=== PATIENT | female | born 1935 | race Caucasian/White ===

== ENCOUNTER 2019-03-14 13:08 | Inpatient (IN) | payer OTHER ==
[2019-03-14] VITALS (16 sets, daily range): BP systolic 113–199; BP diastolic 50–111
[~2019-03-14] VITALS: Ht 157.5 cm; Wt 93.4 kg
[2019-03-14 13:36] LABS: ABSOLUTE NEUTROPHILS 5.1 thou/uL (1.4-8.2); BASOPHILS 0.4 % (0.0-2.0); EOSINOPHILS 3.1 % (0.0-3.0); HEMATOCRIT 40.7 % (37.0-47.0); HEMOGLOBIN 13.8 gm/dL (12.0-15.0); MCH 31.3 pg (26.0-34.0); MCHC 33.8 g/dL (28.0-37.0); MCV 92.6 fL (80.0-100.0); MONOCYTES 6.9 % (1.0-8.0); PLATELET COUNT 250 thou/uL (150-400); POLYS 50.6 % (36.0-66.0); RDW 14.8 % (10.5-14.5); WBC 10.2 thou/uL (4.0-11.0)
--- NOTE | 2019-03-14 13:36 | NUR ---
NO ALL TERRAIN VEHICLE TECHNICIAN PER CARDIO AT BEDSIDE; PT AWARE
[2019-03-14 13:47] LABS: ANION GAP 7 mmol/L (7-16); BUN 28 mg/dL (7-18); CALCIUM 10.3 mg/dL (8.5-10.1); CHLORIDE 104 mmol/L (98-107); CO2 34 mmol/L (21-32); CREATININE 1.4 mg/dL (0.6-1.0); GLUCOSE 155 mg/dL (74-106); POTASSIUM 4.5 mmol/L (3.5-5.1); SODIUM 145 mmol/L (136-145)
[2019-03-14 13:56] LABS: TROPONIN-I <0.06 ng/mL (<0.06)
[2019-03-14 14:06] LABS: PROTIME 10.6 Seconds (9.3-11.4)
[2019-03-14] MEDS ORDERED: SYNTHROID150 MCG PO (14:57)
[2019-03-14] MEDS ORDERED: CALCIUM 500 +1 EAC5 PO (14:58)
[2019-03-14] MEDS ORDERED: LOSARTAN POTASS50 MG PO (14:58)
[2019-03-14] MEDS ORDERED: OMEPRAZOLE 20 M20 M1 PO (14:59)
[2019-03-14] MEDS ORDERED: CYMBALTA60 MG PO (14:59)
[2019-03-14] MEDS ORDERED: GLUCOSAMINE HC500 MG PO (15:00)
[2019-03-14] MEDS ORDERED: TRANDATE 200 M200 M1 PO (15:01)
[2019-03-14] MEDS ORDERED: METFORMIN HCL500 MG PO (15:02)
[2019-03-14] MEDS ORDERED: BUMETANIDE 1 MG1 M1 PO (15:03)
[2019-03-14] MEDS ORDERED: ACTOS 45 MG45 M1 PO (15:04)
[2019-03-14] MEDS ORDERED: SYNTHROID175 MCG PO (15:05)
[2019-03-14] MEDS ORDERED: PRAVACHOL40 MG PO (15:05)
[2019-03-14] MEDS ORDERED: UNICOMPLEX M TA1 TA1 PO (15:06)
[2019-03-14] MEDS ORDERED: ASPIR 8181 MG PO (15:06)
[2019-03-14] MEDS ORDERED: FISH OIL 1,001000 M2 PO (15:07)
[2019-03-14] MEDS ORDERED: NEURONTIN 300300 M1 PO (15:07)
[2019-03-14] MEDS ORDERED: NORCO 10-325 T1 EACH PO (15:11)
[2019-03-14] MEDS ORDERED: KEFLEX500 M1 PO (15:12)
[2019-03-14] MEDS ORDERED: CENTANY30 GM TOP (15:14)
[2019-03-14] MEDS ORDERED: BETAMETHASONE D60 M2 TOP (15:15)
--- NOTE | 2019-03-14 15:15 | NUR ---
PT IS ALERT AND ORIENTED X4. CAME FROM [facility] WITH CHEST PAIN. CTA NEGATIVE AND TROPONIN NEGATIVE. LUNGS ARE CLEAR . ON 3 LITERS NASAL CANULA. DENIES CHEST PAIN. PT HAS A WOUND ON RIGHT LOWER LEG. PUT A CONSULT FOR WOUND CARE TEAM TO SEE AND EVALUATE. SPOUSE AT BEDSIDE FOR SUPPORT. BLOOD SUGAR WNL. VITALS STABLE. VOIDS PER BEDPAN. PT STATES SHE HAS BEEN DIZZY AND WEAK AT HOME [facility]. WILL CONTINUE TO MONITOR AND ASSESS PER NURSING
[2019-03-14] MEDS ORDERED: GINKGO BILOBA120 M1 PO (15:17)
[2019-03-14] MEDS ORDERED: BEE POLLEN550 MG PO (15:17)
--- NOTE | 2019-03-14 16:27 | EKG ---
[address] [address] ELECTROCARDIOGRAM REPORT Name: PRINCESS CAMPA Room #: 241-P ADM IN M.R.#: [id number] ������������������ Admission: 03/14/19 ������������������ Attend Phys: Bryan Ibrahim MD Discharge: ������������������ Date of : 39 Report #: [id number] ����������������������������������������������������������������� [id number] THIS REPORT FOR: //name// [facility] ED Test Date: 2019-03-14 Test Time: 13:13:54 Pat Name: PRINCESS CAMPA Department: Room: 241 Gender: F Registered Pharmacist: KF : 1935 Requested By: Brandon Montiel Order Number: [id number] MD: Edgar Shaw Measurements Intervals [place]der Rate: 70 P: 33 WA: 152 QRS: 5 QRSD: 86 T: 132 QT: 426 QTc: 460 Interpretive Statements Pacemaker spikes or artifacts Sinus rhythm Probable LVH with secondary repol abnrm ST elevation, inferior lead unchanged from prior Compared to ECG 07/09/2009 10:59:57 Electronically Signed On 03-14-2019 16:27:31 CDT by Edgar Shaw [email or web address] ��������������������������������������������� <ELECTRONICALLY SIGNED> ���������������������������������������� By: Edgar Shaw MD ��������������������������������������������� 03/14/19 1627 1313 1313 Edgar Shaw MD /EPI
[2019-03-15] VITALS (23 sets, daily range): BP systolic 114–215; BP diastolic 45–87
[2019-03-15 04:56] LABS: HEMATOCRIT 39.2 % (37.0-47.0); MCH 30.8 pg (26.0-34.0); MCHC 33.2 g/dL (28.0-37.0); MCV 92.9 fL (80.0-100.0); RBC 4.22 mil/uL (4.20-5.00); RDW 15.2 % (10.5-14.5); WBC 7.8 thou/uL (4.0-11.0)
[2019-03-15 05:12] LABS: ANION GAP 7 mmol/L (7-16); BUN 26 mg/dL (7-18); CALCIUM 9.3 mg/dL (8.5-10.1); CHLORIDE 104 mmol/L (98-107); CO2 31 mmol/L (21-32); CREATININE 1.1 mg/dL (0.6-1.0); GLUCOSE 163 mg/dL (74-106); MAGNESIUM 1.9 mg/dL (1.8-2.4); POTASSIUM 3.9 mmol/L (3.5-5.1); SODIUM 142 mmol/L (136-145); TROPONIN-I <0.06 ng/mL (<0.06)
--- NOTE | 2019-03-15 07:15 | NUR ---
ASSUME CARE 1900. PT/VITALS STABLE. BP RUNS HIGH. HYDRALAZINE 10MG FOR SBP > 160. UP WITGH ASSISTANCE TO BATHYROOM INTERMITTENT CP. A/O X 4. ASSESSMENT CHARTED. PROGRESSING WELL WITH POC. PLAN IS FOR PT TO STAY NPO FROR STRESS TEST TODAY. PASSED ON TO DAY NURSE TO KYUNG PICTURES OF WOUND ON RIGHT LEG. WILL CONTINUE TO MONITOR AND FOLLOW WITH POC.
--- NOTE | 2019-03-15 07:39 | 2DMMODE ---
[facility] [place] [address] 2 D/M-MODE ECHOCARDIOGRAM Name: MORRISJOSSELINELVIRAPRINCESS Room #: 241-P ADM IN M.R.#: [id number] ������������� Admission: 03/14/19 ������������� Attend Phys: Bryan Ibrahim MD Discharge: ��� ������������� ��� Date of : 39 Date of Service: 03/15/19 0738 �� Report #: [id number] �������� ��������������������������������������������[id number] THIS REPORT FOR: //name// APPROVED REPORT Study performed: 03/15/2019 06:48:11 EXAM: Comprehensive 2D, Doppler, and color-flow Echocardiogram Patient Location: ICU Room #: 241 Status: routine BSA: 1.95 HR: 72 bpm BP: 185/64 mmHg Rhythm: NSR Other Information Study Quality: Adequate Indications Dyspnea Chest Pain 2D Dimensions RVDd: 34.33 mm IVSd: 14.00 (7-11mm) LVOT Diam: 20.41 (18-24mm) LVDd: 47.00 mm PWd: 12.00 (7-11mm) Ascending Ao: 29.55 (22-36mm) LVDs: 27.08 (25-40mm) Aortic Root: 29.84 mm Volumes Left Atrial Volume (Systole) Single Plane 4CH: 70.43 mL Single Plane 2CH: 65.87 mL LA ESV Index: 38.00 mL/m2 Aortic Valve AoV Peak Gautam.: 1.77 m/s AO Peak Gr.: 12.53 mmHg LVOT Max P.88 mmHg LVOT Max V: 1.21 m/s CLARY Vmax: 2.24 cm2 Mitral Valve E/A Ratio: 0.9 MV Decel. Time: 266.85 ms [facility] [email or web address] [address] 2 D/M-MODE ECHOCARDIOGRAM Name: PRINCESS CAMPA Room #: Formerly named [facility]#: [id number] ������������� Admission: 03/14/19 ������������� Attend Phys: Bryan Ibrahim MD Discharge: ��� ������������� ��� Date of : 39 Date of Service: 03/15/19 0738 �� Report #: [id number] �������� ��������������������������������������������[id number] MV E Max Gautam.: 1.30 m/s MV A Gautam.: 1.45 m/s MV PHT: 77.39 ms IVRT: 101.50 ms Pulmonary Valve PV Peak Gautam.: 1.39 m/s PV Peak Gr.: 7.73 mmHg Pulmonary Vein P Vein S: 0.81 m/s P Vein D: 0.33 m/s P Vein S/D Ratio: 2.45 Tricuspid Valve TR Peak Gautam.: 3.04 m/s RAP Estimate: 5.00 mmHg TR Peak Gr.: 36.99 mmHg PA Pressure: 42.00 mmHg Left Ventricle The left ventricle is normal size. There is normal LV segmental wall motion. Mild to moderate concentric left ventricular hypertrophy. Left ventricular systolic function is normal. LVEF is 60-65%. Mild diastolic dysfunction is present (impaired relaxation pattern). Right Ventricle The right ventricle is normal size. The right ventricular systolic function is normal. Atria The left atrium size is normal. The right atrium size is normal. Aortic Valve Aortic valve is trileaflet. No aortic regurgitation is present. There is no aortic valvular stenosis. Mitral Valve Mild mitral annular calcification. Trace to mild mitral regurgitation. Tricuspid Valve The tricuspid valve is normal in structure. Mild tricuspid regurgitation. Estimated PAP is 40-45mmHg. Pulmonic Valve [facility] [place] [address] [place] [address] 2 D/M-MODE ECHOCARDIOGRAM Name: PRINCESS CAMPA Room #: 241-P ADM IN M.R.#: [id number] ������������� Admission: 03/14/19 ������������� Attend Phys: Bryan Ibrahim MD Discharge: ��� ������������� ��� Date of : 39 Date of Service: 03/15/19 0738 �� Report #: [id number] �������� ��������������������������������������������[id number] The pulmonary valve is normal in structure. Trace pulmonic regurgitation. Great Vessels The aortic root is normal in size. The ascending aorta is normal in size. IVC is normal in size and collapses >50% with inspiration. Pericardium There is no pericardial effusion. <Conclusion> Left ventricular systolic function is normal. Mild to moderate concentric left ventricular hypertrophy. There is normal LV segmental wall motion. LVEF 60-65%. Mild diastolic dysfunction is present (impaired relaxation pattern). Aortic valve is trileaflet. No aortic regurgitation or stenosis. Mild mitral annular calcification. Trace to mild mitral regurgitation. Mild tricuspid regurgitation. Estimated pulmonary artery pressure of 40-45mmHg. There is no pericardial effusion. ��������������������������������������������� <ELECTRONICALLY SIGNED> ���������������������������������������� By: Negro Johns MD, [facility] ��������������������������������������������� 03/15/19737 7 7 Negro Johns MD, FACC /INF
--- NOTE | 2019-03-15 09:02 | EKG ---
[address] [address] ELECTROCARDIOGRAM REPORT Name: PRINCESS CAMPA Room #: 241-P ADM IN M.R.#: [id number] ������������������ Admission: 03/14/19 ������������������ Attend Phys: Bryan Ibrahim MD Discharge: ������������������ Date of : 37 Report #: [id number] ����������������������������������������������������������������� [id number] THIS REPORT FOR: //name// [facility] Test Date: 2019-03-15 Test Time: 07:32:02 Pat Name: PRINCESS CAMPA Department: Room: 241 P Gender: F Equipment Services Associate: : 1935 Requested By: Bryan Ibrahim Order Number: [id number] MD: Edgar Shaw Measurements Intervals [place] Rate: 68 P: 51 CT: 156 QRS: 29 QRSD: 85 T: 119 QT: 431 QTc: 459 Interpretive Statements Sinus rhythm Consider left atrial enlargement Borderline ST elevation, unchanged. Compared to ECG 03/14/2019 13:13:54 Electronically Signed On 03-15-2019 9:02:34 CDT by Edgar Shaw [email or web address] ��������������������������������������������� <ELECTRONICALLY SIGNED> ���������������������������������������� By: Edgar Shaw MD ��������������������������������������������� 03/15/19901 1 1 Edgar Shaw MD /JAMES
--- NOTE | 2019-03-15 09:23 | NUR ---
Nutrition: RD received consult due to diabetes in ICU. Dx, DM, HTN, CP. Pt having stress test today. Usual intake is good. Stable weights. Right lower leg wound from CA removal several weeks ago. BG 132-209. Home diet is mainly portion control. Was not familiar with carbohydrates. Provided brief introduction to carb counting and plate method handout provided. Will followup when out of ICU for further instruction as appropriate. Otherwise low risk.
--- NOTE | 2019-03-15 11:41 | NUR ---
Pt is currently in ICU with cardiac workup in progress. The pt reports that she has had dizziness and chest pain. She lives with her spouse on a farm near [place], [place]. She has a cane and a rwalker but only used them last year when she had a hip replacement surgery. She is familiar with HH and outpt therapy as well from last year. She believes [facility] was her provider. She is normally indep with gait and adl's. Spouse does the driving for both of them. They have [place]. She denies any dc needs or concerns. CM role introduced at bedside. Will remain available should dc needs arise.
--- NOTE | 2019-03-15 14:30 | NUR ---
wound team here. culture sent.
--- NOTE | 2019-03-15 15:14 | NUR ---
WOUND CONSULT: PT. WAS SEEN TODAY BY DR. DICKERSON AND MYSELF. PT. HAS A WOUND TO HER RIGHT ROUSE WHERE SOME SKIN CANCER WAS REMOVED. JUDY-WOUND WAS SLIGHTLY RED TODAY. RECOMMENDATIONS: WOUND CARE TO RIGHT ROUSE: GENTLY CLEANSE AREA WITH WOUND CLEANSER OR NORMAL SALINE, APPLY THERAHONEY TO WOUND BED, COVER WITH BORDERED FOAM, COMPLETE CARES M/W/F AND PRN. PT. AND STAFF NURSE WERE INSTRUCTED ON PLAN OF CARE.
--- NOTE | 2019-03-15 15:30 | NUR ---
to nuclear med. Dr. Yates states pt can go off monitor and transfer to CCU afterwards.
--- NOTE | 2019-03-15 19:37 | NUR ---
end of shift note. pt to stress test part one today. may eat or drink with no restrictions now. CCU overflow. HTN this am, normal now. Care to wound down per wound team. State do no remove dressing until they do on Wednesday.
--- NOTE | 2019-03-16 03:27 | NUR ---
PT ARRIVED UNIT FROM ICU AT ABOUT 2320. PT A/OX4, VITAL SIGNS STABLE, ASSESSMENT CHARTED. NO COMPLAINTS OF PAIN/CHEST PAIN. 2L O2, SATURATION WITHION NORMAL LIMITS. FALL PRECAUTIONS IN PLACE. PT ENCOURGAED TO CALL BEFORE GETTING OUT OF BED. PT RESTED WELL FOR THE REST OF THE NIGHT. PROGRESSIING TOWARD PLAN OF CARE. WILL CONTINUE TO MONITOR.
[2019-03-16 04:13] VITALS: BP 140/64
[2019-03-16 07:40] VITALS: BP 128/46
[2019-03-16 11:14] VITALS: BP 132/48
[2019-03-16] MEDS ORDERED: AMLODIPINE BESYL5 M1 PO (12:19)
[2019-03-16 15:12] VITALS: BP 132/48
--- NOTE | 2019-03-16 18:40 | NUR ---
ASSUMED CARE OF PATIENT AT 0700. ASSESSMENTS CHARTED. PATIENT'S IS SITTING AT THE BEDSIDE. PATIENT UNDERWENT PART 2 OF NUCLEAR STRESS TEST TODAY. PATIENT AMBULATED THE HALLS WITHOUT O2 AND O2 SAT NO LESS THAN 94%. PATIENT DOES NOT USE O2 AT HOME. PATIENT DENIES ANY CHEST PAIN OR PRESSURE. PATIENT APPROVED FOR D/C BY CARDIOLOGY AND HOSPITALIST. SCRIPTS GIVEN TO THE PATIENT WITH INFORMATION SHEET. D/C PAPERWORK SIGNED. PATIENT TAKEN VIA WHEELCHAIR TO THE ER ENTRANCE AND DRIVEN HOME BY HER . W/C INSTRUCTIONS CALLED TO THE PATIENT AT 1840 TO F/U WITH DR. GRIJALVA OR JAYLA AT [address] [facility], [facility], [facility]. PHONE NUMBER TO CALL [phone]. PATIENT STATES THAT SHE WILL CALL TOMORROW TO MAKE FOLLOW UP APPT.
--- NOTE | 2019-03-17 07:55 | HC ---
[facility] [place] [address] CONSULTATION Name: PRINCESS CAMPA Room #: 214-P [facility] IN M.R.#: [id number] Admission: 03/14/19 ������������������ Attend Phys: Bryan Ibrahim MD Discharge: 03/16/19 ������������������ Date of : 39 Report #: [id number] THIS REPORT FOR: //name// CC: AMISH Ibrahim Physician staff DATE OF SERVICE: 03/15/2019 CHIEF COMPLAINT: Ulceration to right leg. HISTORY OF PRESENT ILLNESS: This is an 83-year-old female patient who is transferred from [facility] for possible myocardial infarction. The patient was noted to have a longstanding surgical wound on her right leg. She had a skin cancer "removed" about a year ago and the area has been nonhealing since that time. The patient had been followed by manager relocation with local care but states there has been no improvement. 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 SOCIAL HISTORY: Negative for alcohol use. Positive for current smoker. ALLERGIES: To SULFA. MEDICATIONS: Include Losartan, omeprazole, Cymbalta, labetalol, Glucophage, bumetanide, Actos, Pravachol, Synthroid, aspirin, Unicomplex, Neurontin, Keflex, Bee Pollen and ginkgo. REVIEW OF SYSTEMS: CONSTITUTIONAL: The patient denies fever, chills or weight loss. NEUROLOGICAL: The patient denies focal weakness, numbness or tingling. EYES: The patient denies visual changes, redness or drainage. ENT: The patient denies earache, nasal drainage or sore throat. CARDIOVASCULAR: The patient denies chest pain, palpitations or diaphoresis. PULMONARY: The patient denies cough or shortness of breath. GASTROINTESTINAL: The patient denies nausea, vomiting, diarrhea or abdominal pain. ORTHOPEDIC: The patient does complain of the surgical wound on her right lower leg. Other systems in the 14-point review of systems are negative. PHYSICAL EXAMINATION: VITAL SIGNS: At this time include temperature 98.3, pulse 69, respiration 15 [facility] [address] [place] [address] CONSULTATION Name: PRINCESS CAMPA Room #: 214-[facility].#: [id number] Admission: 03/14/19 ������������������ Attend Phys: Bryan Ibrahim MD Discharge: 03/16/19 ������������������ Date of : 39 Report #: [id number] and blood pressure 158/59. GENERAL: This is a chronically ill-appearing female patient who appears to be in minimal distress. HEENT: Head normocephalic. Nose and throat are clear. NECK: Supple. LUNGS: Clear. HEART: Regular rhythm. ABDOMEN: Soft. Bowel sounds present. EXTREMITIES: Examination of the lower extremities demonstrates 2+ lower extremity edema. Pulses are palpable but diminished. SKIN: Jaconita, warm and dry. There is a circular wound to the pretibial region on the right lower leg. The area is covered with a thick crust. There is surrounding erythema and tenderness and warmth. We have peeled away some of the crusting revealing some granulation tissue on the base. CLINICAL IMPRESSION: 1. Nonhealing surgical wound to the right leg, status post excision of a squamous cell skin cancer about approximately one year ago. 2. Hyperglycemia, likely underlying diabetes mellitus. 3. Clinical evidence of mild peripheral vascular disease. 4. Lower extremity edema. 5. Cellulitis, right lower extremity. RECOMMENDATIONS: At this point in time, culture and sensitivity has been taken from the right leg. We will send this and consider antibiotic therapy, pending those results. We will dress the wound with topical Medihoney and a bordered foam. She would benefit from mild compression with Tubigrip stockings bilaterally. We will check arterial Dopplers. If she has good blood flow, I think we will be able to manage her with a little bit more aggressive compression to aid in healing. I appreciate being asked to see the patient in consultation. ��������������������������������������������� <ELECTRONICALLY SIGNED> ���������������������������������������� By: Ten Tolbert MD ��������������������������������������������� 03/17/19 0755 1600 0932 Ten Tolbert MD /nt
== END 2019-03-16 16:00 | disposition home or self-care (01) | DRG 206 ==
LOC: ER 13:08 → ICU 13:26 → EROBS 13:26 → 2N 13:26 → ICU 15:00 → 2N 03-15 23:26 → ENTRNSPT 03-16 15:41 → EDTRNSPTSTS 03-16 15:42 → 2N 03-16 16:00
PROVIDERS: Emergency Medicine; Internal Medicine; ADMIT Internal Medicine
DX: M94.0 Chondrocostal junction syndrome [Tietze] (principal); L03.115 Cellulitis of right lower limb; L97.919 Non-pressure chronic ulcer of unspecified part of right lower leg with unspecified severity; G89.29 Other chronic pain; M54.9 Dorsalgia, unspecified; N18.9 Chronic kidney disease, unspecified; G56.00 Carpal tunnel syndrome, unspecified upper limb; F17.210 Nicotine dependence, cigarettes, uncomplicated; K21.9 Gastro-esophageal reflux disease without esophagitis; E66.01 Morbid (severe) obesity due to excess calories; E03.9 Hypothyroidism, unspecified; E78.5 Hyperlipidemia, unspecified; E11.65 Type 2 diabetes mellitus with hyperglycemia; E11.22 Type 2 diabetes mellitus with diabetic chronic kidney disease; I12.9 Hypertensive chronic kidney disease with stage 1 through stage 4 chronic kidney disease, or unspecified chronic kidney disease; E11.51 Type 2 diabetes mellitus with diabetic peripheral angiopathy without gangrene; Z79.82 Long term (current) use of aspirin; Z98.42 Cataract extraction status, left eye; Z98.41 Cataract extraction status, right eye; Z90.710 Acquired absence of both cervix and uterus; Z90.49 Acquired absence of other specified parts of digestive tract; Z79.899 Other long term (current) drug therapy; Z88.2 Allergy status to sulfonamides; Z68.37 Body mass index [BMI] 37.0-37.9, adult
CPT/HCPCS: 10078; 10081